=== PATIENT | female | born 1965 | race Caucasian/White ===

== ENCOUNTER 2018-06-04 13:24 | Emergency (ER) | END 2018-06-04 15:46 | disposition home or self-care (01) ==

== ENCOUNTER 2018-11-14 19:07 | Emergency (ER) | payer OTHER ==
[~2018-11-14] VITALS: Ht 154.9 cm; Wt 75.7 kg
[~2018-11-14 19:07] MED LIST: DICL100G37 TOP; IBUP-1542 PO
[2018-11-14 19:25] VITALS: Ht 154.9 cm; Wt 75.7 kg
[2018-11-14] MEDS ORDERED: KETOROLAC 15 MG INJ IM STA (22:19)
[2018-11-15] MEDS ORDERED: IBUP-1561 PO (00:21)
[2018-11-15] MEDS ORDERED: ACET-141 PO (00:21)
--- NOTE | 2018-11-15 00:23 | ERD ---
ER Documentation Chief Complaint Chief Complaint C/O RT MIDDLE FINGER PAIN X2 WEEKS, DENIES ANY INJURY ROS All systems reviewed and are negative except as per history of present illness. Medications Home Meds Active Scripts Ibuprofen* (Motrin*) 400 Mg Tab, 400 MG PO Q6H PRN for PAIN AND OR ELEVATED TEMP, #30 TAB Prov:CODEY HANSON DO 11/15/18 Acetaminophen* (Acetaminophen*) 500 MG Extra Strength Tablet, 500 MG PO Q4H PRN for PAIN AND OR ELEVATED TEMP, #30 TAB Prov:CODEY HANSON DO 11/15/18 Ibuprofen* (Motrin*) 600 Mg Tab, 600 MG PO Q6, #30 TAB Prov:CATINA VILLASENOR PA-C 06/04/18 Diclofenac Sodium* (Voltaren* Gel) 1% -100 Gm Gel, 2 GM TOP QID, #1 TUB Prov:CATINA VILLASENOR PA-C 06/04/18 Allergies Allergies: Coded Allergies: No Known Allergy (Unverified , 11/14/18) PMhx/Soc History of Surgery: No Anesthesia Reaction: No Hx Neurological Disorder: No Hx Respiratory Disorders: No Hx Cardiac Disorders: Yes (HIGH CHOLESTEROL ) Hx Psychiatric Problems: No Hx Miscellaneous Medical Probl: Yes (DM ) Hx Alcohol Use: No Hx Substance Use: No Hx Tobacco Use: No Smoking Status: Never smoker Physical Exam Vitals Vital Signs Date Temp Pulse Resp B/P (MAP) Pulse Ox O2 O2 Flow FiO2 Time Delivery Rate 11/14/18 97.2 82 17 178/66 98 19:25 (103) Physical Exam Const: No acute distress Head: Atraumatic Eyes: Normal Conjunctiva ENT: Normal External Ears, Nose and Mouth. Neck: Full range of motion. No meningismus. Resp: Clear to auscultation bilaterally Cardio: Regular rate and rhythm, no murmurs Abd: Soft, non tender, non distended. Normal bowel sounds Skin: No petechiae or rashes Back: No midline or flank tenderness Ext: No cyanosis, or edema Neur: Awake and alert Psych: Normal Mood and Affect Results 24 hrs Current Medications Medications Dose Sig/Janet Start Time Status Last (Trade) Ordered Route PRN Stop Time Admin Dose Reason Admin Ketorolac 15 mg ONCE STAT 11/14/18 DC 11/14/18 Tromethamine IM 22:19 11/14/18 22:34 (Toradol) 22:21 Departure Diagnosis: Primary Impression: Pain of finger Laterality: right Qualified Codes: M79.644 - Pain in right finger(s) Condition: Fair Patient Instructions: Tendonitis Referrals: [facility] (PCP) Additional Instructions: Llame al doctor MAANA y arsalan brittni KALEB PARA DENTRO DE 1-2 BELTRAN.Dgale a la s ecretaria que nosotros le instruimos hacer esta kaleb.Avise o llame si howe condicin se empeora antes de la kaleb. Regresa aqui si peor o no mejor. CODEY HANSON DO November 15, 2018 00:23
[2018-11-15 00:33] VITALS: BP 143/79; PULSE 72; RESP 16
== END 2018-11-15 00:33 | disposition home or self-care (01) ==
LOC: FTE 19:07
DX: M79.644 Pain in right finger(s) (principal); E11.9 Type 2 diabetes mellitus without complications
CPT/HCPCS: 73130; 96372; J1885; Z7502